=== PATIENT | female | born 1970 | race Caucasian/White ===

== ENCOUNTER 2019-05-05 05:38 | Inpatient (IN) | payer OTHER ==
[2019-05-05] MEDS ORDERED: CEFAZOLIN 2 GM/50 ML (PMX) 50 ML IVPB (06:00)
[2019-05-05] MEDS: CEFAZOLIN 2 GM/50 ML (PMX) 50 ML IVPB (06:42)
[2019-05-05] MEDS ORDERED: MIDAZOLAM 1 MG/ML 2 ML INJ (07:05)
[2019-05-05] MEDS ORDERED: SUCCINYLCHOLINE CHLORIDE 100 MG/5 ML SYG IV (07:05)
[2019-05-05] MEDS ORDERED: PROPOFOL 20 ML (07:05)
[2019-05-05] MEDS ORDERED: LIDOCAINE 1% (MDV) 20 ML INJ (07:06)
[2019-05-05] MEDS ORDERED: FAMOTIDINE 20 MG INJ (07:19)
[2019-05-05] MEDS ORDERED: ONDANSETRON 4 MG INJ (07:19)
[2019-05-05] MEDS ORDERED: DEXAMETHASONE 4 MG/ML 5 ML INJ (07:19)
[2019-05-05] MEDS: BUPIVACAINE 0.25% (MPF) 30 ML INJ (07:47)
[2019-05-05] MEDS: POLYMYXIN/BACITRACIN 1L IRRIG (07:47)
[2019-05-05] MEDS ORDERED: ROCURONIUM 50 MG INJ (08:37)
[2019-05-05] MEDS ORDERED: THROMBIN 5000 UNIT VIAL (08:50)
[2019-05-05] MEDS ORDERED: SUGAMMADEX SODIUM 200 MG/2 ML VIAL IV (09:28)
[2019-05-05] MEDS ORDERED: HYDROmorphONE 1 MG/5 ML IV SYRINGE IV ×3 (10:18→10:30)
[2019-05-05] MEDS: HYDROmorphONE 0.2 MG/ML PCA IV ×2 (10:27→15:25)
[2019-05-05] MEDS ORDERED: CEPASTAT LOZENGE MT (10:30)
[2019-05-05] MEDS ORDERED: ZOLPIDEM 5 MG TAB PO (10:30)
[2019-05-05] MEDS ORDERED: PROCHLORPERAZINE 10 MG TAB PO (10:30)
[2019-05-05] MEDS ORDERED: DIAZEPAM 5 MG/ML SYG IM (10:30)
[2019-05-05] MEDS ORDERED: NALOXONE (0.4 MG/ML) INJ IV (10:30)
[2019-05-05] MEDS ORDERED: TRIMETHOBENZAMIDE 100 MG/ML VIAL IM (10:30)
[2019-05-05] MEDS ORDERED: AL HYDROX/MG HYDROX/SIMETH 30 ML CUP PO (10:30)
[2019-05-05] MEDS ORDERED: ACETAMINOPHEN 325 MG TAB PO (10:30)
[2019-05-05] MEDS ORDERED: BETHANECHOL 25 MG TAB PO (10:30)
[2019-05-05] MEDS: HYDROmorphONE 1 MG/5 ML IV SYRINGE IV (10:31)
[2019-05-05] MEDS: CEFAZOLIN 1 GM/50 ML (PMX) 50 ML IVPB ×3 (11:40→23:11)
[2019-05-05] MEDS: ONDANSETRON 4 MG INJ IV ×2 (11:41→17:28)
[2019-05-05] MEDS: DEXTROSE 5%-0.45% NACL 1,000 ML IV ×2 (16:58→20:04)
[2019-05-05] MEDS: RANITIDINE 150 MG TAB PO (20:10)
[2019-05-05] MEDS: MINOCYCLINE 100 MG CAP PO (21:00)
[2019-05-05] MEDS: HYDROCODONE/APAP (5/325) TAB PO (23:14)
[2019-05-06] MEDS: DIPHENHYDRAMINE 50 MG CAP PO ×2 (01:26→10:36)
[2019-05-06] MEDS: DEXTROSE 5%-0.45% NACL 1,000 ML IV ×2 (05:12→15:31)
[2019-05-06] MEDS: CEFAZOLIN 1 GM/50 ML (PMX) 50 ML IVPB (05:14)
[2019-05-06 05:25] LABS: HEMATOCRIT 33.4 % (37.0-47.0); HEMOGLOBIN 10.9 g/dl (12.0-16.0)
[2019-05-06 05:40] LABS: ANION GAP 7 (5-13); BLOOD UREA NITROGEN 9 mg/dl (7-20); CALCIUM 8.5 mg/dl (8.4-10.2); CARBON DIOXIDE 27 mmol/L (21-31); CHLORIDE 105 mmol/L (97-110); CREATININE 0.61 mg/dl (0.44-1.00); Estimated GFR > 60 mL/min (>60); GLUCOSE 112 mg/dl (70-220); POTASSIUM 3.6 mmol/L (3.5-5.1); SODIUM 139 mmol/L (135-144)
[2019-05-06] MEDS: HYDROmorphONE 0.2 MG/ML PCA IV (06:11)
[2019-05-06] MEDS: HYDROCODONE/APAP (5/325) TAB PO ×2 (06:15→12:26)
[2019-05-06] MEDS ORDERED: BETHANECHOL 25 MG TAB PO (08:00)
[2019-05-06] MEDS: MINOCYCLINE 100 MG CAP PO ×2 (09:00→21:00)
[2019-05-06] MEDS: DOCUSATE SODIUM 100 MG CAP PO ×2 (09:17→22:02)
[2019-05-06] MEDS: valACYclovir 500 MG TAB PO (09:17)
[2019-05-06] MEDS: FERROUS SULFATE (EC) 325 MG TAB PO ×3 (09:18→22:02)
[2019-05-06] MEDS: ASCORBIC ACID 500 MG TAB PO ×2 (09:18→22:02)
[2019-05-06] MEDS: RANITIDINE 150 MG TAB PO ×2 (09:18→22:01)
[2019-05-06] MEDS: DIAZEPAM 5 MG TAB PO ×2 (09:19→22:05)
[2019-05-06 10:26] LABS: UR MUCUS FEW /HPF (NONE SEEN); UR RBC 1 /HPF (0-5); UR WBC 3 /HPF (0-5)
[2019-05-06 10:32] LABS: UR BACTERIA FEW /HPF (NONE SEEN)
[2019-05-06 10:47] LABS: ADD UMIC YES; UR ASCORBIC ACID NEGATIVE (NEGATIVE); UR BILIRUBIN (Dip) NEGATIVE (NEGATIVE); UR BLOOD (Dip) 1+ mg/dL (NEGATIVE); UR CLARITY CLEAR (CLEAR); UR COLOR STRAW (YELLOW); UR GLUCOSE (Dip) NEGATIVE (NEGATIVE); UR KETONES (Dip) NEGATIVE (NEGATIVE); UR LEUKOCYTE ESTERASE (Dip) TRACE Leu/ul (NEGATIVE); UR NITRITE (Dip) NEGATIVE (NEGATIVE); UR SPECIFIC GRAVITY (Dip) 1.009 (1.003-1.030); UR TOTAL PROTEIN (Dip) NEGATIVE (NEGATIVE); UR UROBILINOGEN (Dip) NEGATIVE (NEGATIVE)
[2019-05-06] MEDS: HYDROCODONE/APAP (10/325) TAB PO ×2 (17:19→18:05)
[2019-05-06] MEDS: NACL 0.9% 3 ML SYG IV (22:05)
[2019-05-07] MEDS: HYDROCODONE/APAP (10/325) TAB PO ×3 (01:45→13:51)
[2019-05-07] MEDS: DEXTROSE 5%-0.45% NACL 1,000 ML IV ×2 (02:04→12:04)
[2019-05-07] MEDS: MINOCYCLINE 100 MG CAP PO (09:00)
[2019-05-07] MEDS: valACYclovir 500 MG TAB PO (09:51)
[2019-05-07] MEDS: DOCUSATE SODIUM 100 MG CAP PO (09:51)
[2019-05-07] MEDS: RANITIDINE 150 MG TAB PO (09:51)
[2019-05-07] MEDS: ASCORBIC ACID 500 MG TAB PO (09:51)
[2019-05-07] MEDS: FERROUS SULFATE (EC) 325 MG TAB PO ×2 (09:51→13:03)
== END 2019-05-07 15:10 | disposition home or self-care (01) | DRG 501 ==
LOC: REC 05:38 → MS1 15:41
PROC: 01NB0ZZ Release Lumbar Nerve, Open Approach (ICD-10-PCS; principal; 2019-05-05 07:00)
PROC: 0MBD0ZZ Excision of Lower Spine Bursa and Ligament, Open Approach (ICD-10-PCS; 2019-05-05 07:00)
DX: M48.061 Spinal stenosis, lumbar region without neurogenic claudication (principal); Z68.41 Body mass index [BMI] 40.0-44.9, adult; E66.01 Morbid (severe) obesity due to excess calories; E78.5 Hyperlipidemia, unspecified; L70.0 Acne vulgaris; B00.9 Herpesviral infection, unspecified; M67.48 Ganglion, other site; M43.16 Spondylolisthesis, lumbar region
CPT/HCPCS: 72020; 80048; 81001; 85014; 85018; 86850; 86900; 86901; 86920; 87086; 88304; 88311; 97110; 97116; 97162; 97530